=== PATIENT | male | born 1995 | race Caucasian/White ===

== ENCOUNTER 2020-06-30 21:43 | Emergency (ER) | payer MEDICAID, OTHER ==
[~2020-06-30] VITALS: Ht 177.8 cm; Wt 220.0 kg
[2020-06-30] MEDS ORDERED: FAMOTIDINE 20MG/2ML VIAL IV STA (22:02)
[2020-06-30] MEDS ORDERED: ONDANSETRON HCL 4MG/2ML INJ IV STA (22:02)
[2020-06-30] MEDS ORDERED: MAGNESIUM/ALUMINUM HYDROXIDE/SIMETHICONE 30ML UDC PO STA (22:02)
[2020-06-30] MEDS ORDERED: SODIUM CHLORIDE 0.9% 500 ML IV ONE ×2 (22:15→23:45)
[2020-06-30 23:11] LABS: BASOPHILS % 0.6 % (0.0-2.0); EOSINOPHILS % 1.3 % (0.0-5.0); HEMOGLOBIN. 12.5 g/dL (14.0-18.0); LYMPHOCYTES % 13.8 % (20.0-50.0); MEAN CORPUSCULAR HEMOGLOBIN 29.8 pg (28.0-32.0); MEAN CORPUSCULAR VOLUME 88.1 fL (80.0-94.0); MEAN PLATELET VOLUME 7.9 fl (7.4-10.4); NEUTROPHILS % 78.3 % (40.0-76.0); PLATELET 299 x1000/uL (130-400); RED CELL DISTRIBUTION WIDTH 13.7 % (11.6-14.6)
[2020-06-30 23:14] LABS: CHLORIDE 105 mEq/L (98-107)
[2020-06-30 23:16] LABS: PROTHROMBIN TIME 10.9 sec (9.6-11.0)
[2020-07-01 00:31] LABS: CLARITY URINE CLEAR (CLEAR); COLOR URINE YELLOW (YELLOW); KETONES URINE NEGATIVE (NEGATIVE); LEUKOCYTE ESTERASE URINE NEGATIVE (NEGATIVE); NITRITE URINE NEGATIVE (NEGATIVE); OCCULT BLOOD URINE NEGATIVE (NEGATIVE); PROTEIN URINE NEGATIVE (NEGATIVE)
[2020-07-01] MEDS ORDERED: ONDANSETRON HCL 4MG/2ML INJ IV ONE (02:15)
[2020-07-01] MEDS ORDERED: MORPHINE SULFATE 4 MG/ML CPJ (NOT FOR IM USE) IV ONE ×2 (02:15→02:30)
[2020-07-01] MEDS ORDERED: PROT20 MT (03:09)
[2020-07-01] MEDS ORDERED: ONDA4TAB11 PO (03:35)
[2020-07-01 03:55] VITALS: BP 137/77
== END 2020-07-01 04:00 | disposition home or self-care (01) ==
LOC: ER 21:43
DX: R10.9 Unspecified abdominal pain (principal); Z68.41 Body mass index [BMI] 40.0-44.9, adult; G43.909 Migraine, unspecified, not intractable, without status migrainosus; Z88.2 Allergy status to sulfonamides; Z88.8 Allergy status to other drugs, medicaments and biological substances
CPT/HCPCS: 36415; 71045; 76705; 80053; 81003; 83690; 85025; 85610; 93005; 96361; 96374; 96375; 96376; 99285; J2270; J2405; J3490; J7040; Z7610